=== PATIENT | male | born 1995 | race Two or more races ===

== ENCOUNTER 2018-05-16 15:54 | Inpatient (IN) | payer SELFPAY ==
[~2018-05-16] VITALS: Ht 177.8 cm; Wt 72.4 kg
[2018-05-16] MEDS ORDERED: SODIUM CHLORIDE 0.9% 1,000 ML IV ONE ×2 (16:21)
[2018-05-16] MEDS ORDERED: InsuLIN R (HUMAN) 100 UNITS in SODIUM CHL 0.9% 99 ML IV SCH (16:21)
[2018-05-16] MEDS ORDERED: ACCU-CHEK COMFORT CURVE STRIP VI SCH (16:30)
[2018-05-16] MEDS ORDERED: DEXTROSE (50%) 50ML SYRG IV PRN ×2 (16:30→18:00)
[2018-05-16] MEDS ORDERED: SUCCINYLCHOLINE CHLORIDE 20 MG/ML 10ML VIAL IV ONE ×2 (16:51→17:15)
[2018-05-16] MEDS ORDERED: ETOMIDATE (2MG/ML) 20ML VIAL IV ONE ×2 (16:51→17:15)
[2018-05-16] MEDS ORDERED: PROPOFOL 100 ML IV ONE (17:02)
[2018-05-16 17:03] LABS: Mean Corpuscular Hemoglobin 34.4 pg (28.0-32.0)
[2018-05-16] MEDS ORDERED: MIDAZOLAM DRIP 50 mg/50mL 50 ML IV ONE (17:03)
[2018-05-16 17:04] LABS: Hematocrit 48.9 % (41.0-53.0); Hemoglobin 16.7 g/dL (13.5-17.5); Mean Corpuscular Hgb Conc. 34.2 g/dL (32.0-36.0); Mean Corpuscular Volume 100.7 fL (80.0-100.0); Platelet Count (auto) 449 10^3/uL (140-450); Red Blood Cells 4.86 10^6/uL (4.5-5.90); Red Cell Distribution Width 13.5 % (11.8-14.3)
[2018-05-16] MEDS: PROPOFOL 100 ML IV SCH (17:10)
[2018-05-16] MEDS: MIDAZOLAM DRIP 50 mg/50mL 50 ML IV SCH ×2 (17:12→19:30)
[2018-05-16] MEDS ORDERED: PROPOFOL 10 MG/ML 20 ML IV ONE (17:15)
[2018-05-16] MEDS ORDERED: SODIUM BICARBONATE 8.4 % INJ 50ML VIAL IV ONE ×3 (17:15→23:00)
[2018-05-16 17:19] LABS: White Blood Cell 36.3 10^3/uL (4.4-10.8)
[2018-05-16 17:20] LABS: Basophils % (manual) 0 (0.0-2.0); Blast Cells 0; Eosinophils % (manual) 0 (0-7); Promyelocytes % 0; Reactive Lymphocytes 0
[2018-05-16] MEDS ORDERED: SODIUM CHLORIDE 0.9% 1,000 ML IV SCH ×4 (17:20→23:20)
[2018-05-16 17:30] VITALS: BP 129/85
[2018-05-16 17:41] LABS: Lymphocytes % (manual) 33 (10.0-50.0); Monocytes % (manual) 9 (0-12)
[2018-05-16 17:42] LABS: Band Neutrophils % (manual) 4; Metamyelocytes % 1; Myelocytes % 1
[2018-05-16 17:51] VITALS: BP 129/85
[2018-05-16] MEDS ORDERED: ONDANSETRON HCL 4 MG/2 ML VIAL IV PRN (18:00)
[2018-05-16] MEDS ORDERED: LORazepam 0.5 MG TAB PO PRN (18:00)
[2018-05-16] MEDS ORDERED: MORPHINE SULFATE 4 MG/ML SYR/VIAL IV PRN (18:00)
[2018-05-16] MEDS ORDERED: NITROGLYCERIN 0.4 MG SL TAB SL PRN (18:00)
[2018-05-16] MEDS ORDERED: PANTOPRAZOLE 40 MG/10 ML VIAL IV ONE (18:00)
[2018-05-16] MEDS ORDERED: TEMAZEPAM 15 MG CAP PO PRN (18:00)
[2018-05-16] MEDS: ACCU-CHEK COMFORT CURVE STRIP VI SCH ×4 (18:20→22:37)
[2018-05-16] MEDS: InsuLIN R (HUMAN) 100 UNITS in SODIUM CHL 0.9% 99 ML IV SCH (18:21)
[2018-05-16] MEDS: SODIUM CHLORIDE 0.9% 1,000 ML IV SCH ×3 (18:22→23:59)
[2018-05-16 18:43] LABS: Urine Bacteria NONE SEEN /hpf (None Seen); Urine Blood TRACE /uL (Negative); Urine Mucus FEW (None Seen); Urine Specific Gravity 1.018 (1.001-1.035); Urine WBC <1 /hpf (0 - 3)
[2018-05-16 18:53] LABS: Albumin 3.5 g/dL (3.4-5.0); Anion Gap 25 (5-15); Calcium 6.4 mg/dL (8.5-10.1); Chloride 100 mmol/L (98-107); GFR African American 114 mL/min; GFR Non-African American 94 mL/min; Magnesium 2.5 mg/dL (1.6-2.6); Phosphorus 4.2 mg/dL (2.5-4.90); Potassium 4.4 mmol/L (3.5-5.1); Sodium 131 mmol/L (136-145)
[2018-05-16 18:55] VITALS: BP 120/70
[2018-05-16 18:58] LABS: Carbon Dioxide 6 mmol/L (21-32); Glucose 488 mg/dL (74-106)
[2018-05-16] MEDS ORDERED: SODIUM BICARB 50ML SYR 150 ML in SODIUM CHLORIDE 0.9% 1,000 ML IV ONE (19:00)
[2018-05-16 19:02] LABS: Alkaline Phosphatase 88 U/L (45-117); Bilirubin, Total 0.9 mg/dL (0.2-1.0)
[2018-05-16 19:03] LABS: BUN/Creatinine Ratio 15.2
[2018-05-16 19:14] LABS: Total Protein 7.4 g/dL (6.4-8.2)
[2018-05-16 19:52] LABS: Alanine Aminotransferase 69 U/L (16-61); Aspartate Aminotransferase 63 U/L (15-37); Blood Urea Nitrogen 16 mg/dL (7-18)
[2018-05-16 20:36] VITALS: BP 121/73
[2018-05-16] MEDS: fentaNYL Drip 2500mCg/250mlNS 250 ML IV SCH (20:45)
[2018-05-16 22:31] LABS: Calcium 6.2 mg/dL (8.5-10.1); Potassium 4.4 mmol/L (3.5-5.1)
[2018-05-16 22:49] LABS: BUN/Creatinine Ratio 14.1
[2018-05-17] VITALS (86 sets, daily range): BP systolic 77–145; BP diastolic 28–78
[2018-05-17] MEDS: ACCU-CHEK COMFORT CURVE STRIP VI SCH ×16 (00:02→22:30)
[2018-05-17 00:34] LABS: Calcium 6.2 mg/dL (8.5-10.1); Potassium 4.3 mmol/L (3.5-5.1)
[2018-05-17 00:39] LABS: BUN/Creatinine Ratio 14.7
[2018-05-17] MEDS ORDERED: SODIUM BICARBONATE 8.4 % INJ 50ML VIAL IV ONE (01:00)
[2018-05-17] MEDS ORDERED: DIGOXIN (250MCG/ML) 2 ML AMPULE IV ONE (01:00)
[2018-05-17] MEDS: SODIUM CHLORIDE 0.9% 1,000 ML IV SCH ×3 (02:55→18:02)
[2018-05-17] MEDS: NOREPINEPHRINE 8 MG/250ML KIT 250 ML IV SCH (03:08)
[2018-05-17 03:46] LABS: Basophils # (auto) 0 uL; Eosinophils # (auto) 0 uL; Eosinophils % (auto) 0.1 % (0.0-7.0); Mean Corpuscular Volume 95.4 fL (80.0-100.0); Neutrophils # (auto) 6.2 uL; Nucleated Red Blood Cells % 0.1 %
[2018-05-17 03:47] LABS: Basophils % (auto) 0.4 % (0.0-2.0); Lymphocytes # (auto) 2.1 uL; Lymphocytes % (auto) 22.1 % (10.0-50.0); Monocytes # (auto) 1.3 uL; Monocytes % (auto) 13.1 % (0.0-12.0); Neutrophils % (auto) 64.3 % (37.0-80.0); Platelet Count (auto) 186 10^3/uL (140-450); Red Blood Cells 3.59 10^6/uL (4.5-5.90); White Blood Cell 9.6 10^3/uL (4.4-10.8)
[2018-05-17 04:07] LABS: Albumin 2.7 g/dL (3.4-5.0); Calcium 6.8 mg/dL (8.5-10.1); Potassium 3.2 mmol/L (3.5-5.1)
[2018-05-17 04:12] LABS: Bilirubin, Total 0.9 mg/dL (0.2-1.0)
[2018-05-17] MEDS: PROPOFOL 100 ML IV SCH (04:29)
[2018-05-17 04:38] LABS: BUN/Creatinine Ratio 13.5
[2018-05-17 04:39] LABS: Total Protein 5.6 g/dL (6.4-8.2)
[2018-05-17] MEDS ORDERED: SODIUM BICARB 50ML SYR 50 ML in SODIUM CHLORIDE 0.9% 1,000 ML IV ONE (05:00)
[2018-05-17] MEDS: MIDAZOLAM DRIP 50 mg/50mL 50 ML IV SCH ×2 (06:02→10:04)
[2018-05-17 06:07] LABS: Hemoglobin 10.2 g/dL (13.5-17.5); Mean Corpuscular Hemoglobin 32.2 pg (28.0-32.0)
[2018-05-17] MEDS: PANTOPRAZOLE 40 MG/10 ML VIAL IV SCH (10:04)
[2018-05-17] MEDS: ACETAMINOPHEN 500 MG TAB PO PRN ×3 (10:05→23:12)
[2018-05-17 10:45] LABS: BUN/Creatinine Ratio 9.7; Potassium 3.1 mmol/L (3.5-5.1)
[2018-05-17] MEDS ORDERED: POTASSIUM EFFERVESENT TAB 25 MEQ GT ONE (11:45)
[2018-05-17] MEDS ORDERED: VANCOMYCIN PER PHARMACY 0 MG IV SCH (12:15)
[2018-05-17] MEDS ORDERED: THIAMINE 100mg/ml INJ (200mg/2ml VIAL) IV ONE (12:15)
[2018-05-17] MEDS ORDERED: LEVOFLOXACIN 500MG 100 ML IV ONE (12:15)
[2018-05-17] MEDS ORDERED: Glucerna 1.2 Cal 1Liter BOTTLE GT SCH (12:15)
[2018-05-17] MEDS: VANCOMYCIN 1GM/250ML 250 ML IV SCH (14:07)
[2018-05-17] MEDS: InsuLIN R (HUMAN) 100 UNITS in SODIUM CHL 0.9% 99 ML IV SCH (17:53)
[2018-05-17] MEDS: fentaNYL Drip 2500mCg/250mlNS 250 ML IV SCH (20:21)
[2018-05-17] MEDS ORDERED: ACETAMINOPHEN 650 MG RECT SUPP PR ONE (22:45)
[2018-05-18] VITALS (64 sets, daily range): BP systolic 86–127; BP diastolic 31–88
[2018-05-18] MEDS: ACCU-CHEK COMFORT CURVE STRIP VI SCH ×10 (00:09→19:53)
[2018-05-18] MEDS ORDERED: IBUPROFEN 600 MG TAB PO ONE ×2 (00:27→00:30)
[2018-05-18] MEDS: SODIUM CHLORIDE 0.9% 1,000 ML IV SCH ×2 (00:35→08:30)
[2018-05-18] MEDS: VANCOMYCIN 1GM/250ML 250 ML IV SCH ×2 (00:41→12:44)
[2018-05-18] MEDS: NOREPINEPHRINE 8 MG/250ML KIT 250 ML IV SCH (03:08)
[2018-05-18 04:17] LABS: Basophils # (auto) 0 uL; Basophils % (auto) 0.4 % (0.0-2.0); Eosinophils # (auto) 0 uL; Eosinophils % (auto) 0.3 % (0.0-7.0); Hematocrit 34.1 % (41.0-53.0); Hemoglobin 12.3 g/dL (13.5-17.5); Lymphocytes # (auto) 1.5 uL; Lymphocytes % (auto) 19.6 % (10.0-50.0); Mean Corpuscular Hemoglobin 33.8 pg (28.0-32.0); Mean Corpuscular Volume 93.8 fL (80.0-100.0); Monocytes # (auto) 1.2 uL; Neutrophils # (auto) 4.9 uL; Neutrophils % (auto) 63.7 % (37.0-80.0); Nucleated Red Blood Cells % 0.1 %; Platelet Count (auto) 130 10^3/uL (140-450); Red Blood Cells 3.64 10^6/uL (4.5-5.90); Red Cell Distribution Width 13.7 % (11.8-14.3); White Blood Cell 7.7 10^3/uL (4.4-10.8)
[2018-05-18 04:33] LABS: Albumin 2.5 g/dL (3.4-5.0); Calcium 7.9 mg/dL (8.5-10.1); Magnesium 1.9 mg/dL (1.6-2.6)
[2018-05-18 04:36] LABS: BUN/Creatinine Ratio 5.4; Bilirubin, Total 0.6 mg/dL (0.2-1.0); Phosphorus 2.1 mg/dL (2.5-4.90); Total Protein 5.5 g/dL (6.4-8.2)
[2018-05-18 04:42] LABS: Potassium 2.6 mmol/L (3.5-5.1)
[2018-05-18] MEDS ORDERED: POTASSIUM EFFERVESENT TAB 25 MEQ ONE (04:58)
[2018-05-18] MEDS ORDERED: POTASSIUM CHL 20MEQ/100ML 300 ML IV ONE (04:59)
[2018-05-18] MEDS ORDERED: POTASSIUM EFFERVESENT TAB 25 MEQ PO ONE (05:00)
[2018-05-18] MEDS: POTASSIUM CHL 20MEQ/100ML 100 ML IV SCH ×3 (05:07→09:29)
[2018-05-18] MEDS: LEVOFLOXACIN 500MG 100 ML IV SCH (09:48)
[2018-05-18] MEDS: PANTOPRAZOLE 40 MG/10 ML VIAL IV SCH (09:49)
[2018-05-18] MEDS ORDERED: THIAMINE 100mg/ml INJ (200mg/2ml VIAL) IV SCH (10:00)
[2018-05-18] MEDS ORDERED: INSULIN LANTUS (GLARGINE) 1 /0.01ml (100units/ml) SC ONE (10:45)
[2018-05-18] MEDS ORDERED: DEXTROSE (50%) 50ML SYRG IV PRN (10:45)
[2018-05-18] MEDS: InsuLIN REG 1unit/0.01ml Soln (100units/ml) SC SCH ×3 (12:00→19:53)
[2018-05-18] MEDS ORDERED: FLUCONAZOLE 100 MG TAB PO ONE (14:00)
[2018-05-18] MEDS: SOD CHL 0.45% WITH 20MEQ KCL 1,000 ML IV SCH (14:39)
[2018-05-18] MEDS: ACETAMINOPHEN 500 MG TAB PO PRN (14:39)
[2018-05-18] MEDS ORDERED: INSULIN LANTUS (GLARGINE) 1 /0.01ml (100units/ml) SC SCH (22:00)
[2018-05-19] MEDS: NYSTATIN TOPICAL CREAM 15GM TOP SCH ×4 (00:37→22:44)
[2018-05-19] MEDS: InsuLIN REG 1unit/0.01ml Soln (100units/ml) SC SCH ×7 (00:38→23:20)
[2018-05-19] MEDS: SOD CHL 0.45% WITH 20MEQ KCL 1,000 ML IV SCH ×3 (00:38→20:42)
[2018-05-19] MEDS: ACCU-CHEK COMFORT CURVE STRIP VI SCH ×7 (00:39→23:20)
[2018-05-19 05:41] VITALS: BP 105/68
[2018-05-19 05:44] LABS: BUN/Creatinine Ratio 6.9; Calcium 8.4 mg/dL (8.5-10.1); Magnesium 1.8 mg/dL (1.6-2.6)
[2018-05-19 05:54] LABS: Potassium 2.7 mmol/L (3.5-5.1)
[2018-05-19] MEDS ORDERED: POTASSIUM CHL 20 Meq TABLET PO ONE (06:15)
[2018-05-19 08:40] VITALS: BP 90/58
[2018-05-19 08:41] VITALS: BP 101/65
[2018-05-19] MEDS: LEVOFLOXACIN 500MG 100 ML IV SCH (10:30)
[2018-05-19] MEDS: FLUCONAZOLE 100 MG TAB PO SCH (10:31)
[2018-05-19] MEDS ORDERED: POTASSIUM PHOSPHATE 26.4 MEQ in SODIUM CHL 0.9% 100 ML IV ONE (11:15)
[2018-05-19] MEDS: CEPHALEXIN 250 MG CAP PO SCH ×3 (11:52→23:19)
[2018-05-19] MEDS: MAGNESIUM SULFATE 1GM/100ML 100 ML IV SCH ×2 (11:53→12:55)
[2018-05-19 12:13] VITALS: BP 102/61
[2018-05-19 17:14] VITALS: BP 118/67
[2018-05-19 22:00] VITALS: BP 116/60
[2018-05-19] MEDS ORDERED: INSULIN LANTUS (GLARGINE) 1 /0.01ml (100units/ml) SC SCH (22:00)
[2018-05-20] MEDS: InsuLIN REG 1unit/0.01ml Soln (100units/ml) SC SCH ×3 (04:00→12:05)
[2018-05-20] MEDS: ACCU-CHEK COMFORT CURVE STRIP VI SCH ×3 (04:34→12:06)
[2018-05-20 04:43] VITALS: BP 103/56
[2018-05-20] MEDS: CEPHALEXIN 250 MG CAP PO SCH ×2 (05:41→12:08)
[2018-05-20] MEDS: SOD CHL 0.45% WITH 20MEQ KCL 1,000 ML IV SCH (05:41)
[2018-05-20 06:43] LABS: Calcium 8.5 mg/dL (8.5-10.1); Magnesium 2.1 mg/dL (1.6-2.6)
[2018-05-20 06:45] LABS: BUN/Creatinine Ratio 12.2
[2018-05-20 06:48] LABS: Potassium 2.7 mmol/L (3.5-5.1)
[2018-05-20 08:39] VITALS: BP 106/61
[2018-05-20] MEDS: FLUCONAZOLE 100 MG TAB PO SCH (09:39)
[2018-05-20] MEDS: NYSTATIN TOPICAL CREAM 15GM TOP SCH (09:39)
[2018-05-20] MEDS ORDERED: POTASSIUM CHL 20 Meq TABLET PO ONE ×2 (10:30→12:30)
[2018-05-20] MEDS ORDERED: POTASSIUM CHL 20MEQ/100ML 100 ML IV SCH (10:30)
[2018-05-20 13:35] VITALS: BP 110/64
== END 2018-05-20 16:21 | disposition home or self-care (01) | DRG 871 ==
LOC: ER 15:54 → EDBD 17:56 → OVERFLOW 17:56 → ICU WEST 05-17 02:13 → EAST 05-18 22:00
PROVIDERS: ADMIT Internal Medicine; ATTEND Internal Medicine
PROC: 5A1945Z Respiratory Ventilation, 24-96 Consecutive Hours (ICD-10-PCS; principal; 2018-05-16)
PROC: 0BH17EZ Insertion of Endotracheal Airway into Trachea, Via Natural or Artificial Opening (ICD-10-PCS; 2018-05-16)
DX: A41.9 Sepsis, unspecified organism (principal); J96.00 Acute respiratory failure, unspecified whether with hypoxia or hypercapnia; E11.10 Type 2 diabetes mellitus with ketoacidosis without coma; J15.211 Pneumonia due to Methicillin susceptible Staphylococcus aureus; R65.10 Systemic inflammatory response syndrome (SIRS) of non-infectious origin without acute organ dysfunction; L02.232 Carbuncle of back [any part, except buttock and flank]; D72.829 Elevated white blood cell count, unspecified; E87.6 Hypokalemia; Z91.14 Patient's other noncompliance with medication regimen; Z91.19 Patient's noncompliance with other medical treatment and regimen; Z79.4 Long term (current) use of insulin
CPT/HCPCS: 31500; 36415; 36600; 71045; 80048; 80053; 81001; 82010; 82805; 82962; 83036; 83735; 83930; 84100; 84132; 84484; 85007; 85025; 85027; 85610; 85652; 85730; 87040; 87070; 87077; 87081; 87086; 87186; 87205; 94002; 94003; 96361; 96365; 96375; 99291; A6257; C9113; G0378; J0330; J1815; J1956; J2250; J2704; J3480

== ENCOUNTER 2018-08-18 00:16 | Emergency (ER) | payer MEDICAID ==
[~2018-08-18] VITALS: Ht 172.7 cm; Wt 88.9 kg
[2018-08-18 00:27] VITALS: BP 123/79
[2018-08-18 00:54] LABS: Basophils # (auto) 0 uL; Basophils % (auto) 0.6 % (0.0-2.0); Eosinophils # (auto) 0.1 uL; Hematocrit 47.1 % (41.0-53.0); Hemoglobin 16.7 g/dL (13.5-17.5); Lymphocytes # (auto) 2.8 uL; Lymphocytes % (auto) 41.8 % (10.0-50.0); Mean Corpuscular Hemoglobin 31.5 pg (28.0-32.0); Mean Corpuscular Hgb Conc. 35.5 g/dL (32.0-36.0); Mean Corpuscular Volume 88.7 fL (80.0-100.0); Monocytes # (auto) 0.6 uL; Monocytes % (auto) 9.5 % (0.0-12.0); Neutrophils # (auto) 3.1 uL; Neutrophils % (auto) 46.1 % (37.0-80.0); Nucleated Red Blood Cells % 0.2 %; Platelet Count (auto) 204 10^3/uL (140-450); Red Blood Cells 5.31 10^6/uL (4.5-5.90); Red Cell Distribution Width 11.9 % (11.8-14.3); White Blood Cell 6.7 10^3/uL (4.4-10.8)
[2018-08-18 01:10] LABS: INR 0.96 (0.9-1.15); Partial Thromboplastin Time 23.7 sec (23.78-33.04); Prothrombin Time 10.3 sec (9.27-12.13)
[2018-08-18 01:12] LABS: Alanine Aminotransferase 22 U/L (16-61); Albumin 4.1 g/dL (3.4-5.0); Anion Gap 11 (5-15); Aspartate Aminotransferase 11 U/L (15-37); BUN/Creatinine Ratio 21.2; Blood Urea Nitrogen 18 mg/dL (7-18); Calcium 9.1 mg/dL (8.5-10.1); Carbon Dioxide 25 mmol/L (21-32); Chloride 103 mmol/L (98-107); GFR African American 145 mL/min; GFR Non-African American 120 mL/min; Glucose 206 mg/dL (74-106); Potassium 3.3 mmol/L (3.5-5.1); Sodium 139 mmol/L (136-145)
[2018-08-18 01:17] LABS: Alkaline Phosphatase 62 U/L (45-117); Bilirubin, Total 0.3 mg/dL (0.2-1.0); Total Protein 7.4 g/dL (6.4-8.2)
== END 2018-08-18 05:17 | disposition left against medical advice (07) ==
LOC: EDSEX 00:16 → ER 00:19
DX: R07.9 Chest pain, unspecified (principal); Z53.21 Procedure and treatment not carried out due to patient leaving prior to being seen by health care provider
CPT/HCPCS: 36415; 71046; 80053; 82962; 83735; 84443; 84484; 85025; 85610; 85730; 93005